=== PATIENT | male | born 1995 | race Caucasian/White ===

== ENCOUNTER 2017-01-03 17:02 | Inpatient (IN) | payer OTHER ==
--- NOTE | 2017-01-03 17:47 | ED ---
Psych HPI <Palomo Sauceda - Last Filed: 01/03/17 22:29> - General Source: patient, RN notes reviewed Mode of arrival: ambulatory <Eleanor Medrano - Last Filed: 01/03/17 22:39> - General Chief Complaint: Psychiatric Symptoms Stated Complaint: mental health Time Seen by Provider: 01/03/17 17:21 - History of Present Illness Initial Comments: 21 yo male presents to the ER with cc of suicidal ideation. Patient had a plan to drowned himself in the river. Not answering questions. He has been drinking. He did tell multiple family members by according to police report. Patient denies any complaints. (Eleanor Medrano) - Related Data Allergies Allergy/AdvReac Type Severity Reaction Status Date / Time No Known Allergies Allergy Verified 01/03/17 17:38 Review of Systems ROS Other: All systems not noted in ROS Statement are negative. <Palomo Sauceda - Last Filed: 01/03/17 22:29> ROS Other: All systems not noted in ROS Statement are negative. <Eleanor Medrano - Last Filed: 01/03/17 22:39> ROS Statement: Those systems with pertinent positive or pertinent negative responses have been documented in the HPI. General Exam Limitations: no limitations General appearance: alert, appears intoxicated, other (tearful) Head exam: Present: atraumatic, normocephalic, normal inspection Eye exam: Present: normal appearance, PERRL, EOMI. Absent: scleral icterus, conjunctival injection, periorbital swelling ENT exam: Present: normal exam, mucous membranes moist Neck exam: Present: normal inspection. Absent: tenderness, meningismus, lymphadenopathy Respiratory exam: Present: normal lung sounds bilaterally. Absent: respiratory distress, wheezes, rales, rhonchi, stridor Cardiovascular Exam: Present: regular rate, normal rhythm, normal heart sounds. Absent: systolic murmur, diastolic murmur, rubs, gallop, clicks Neurological exam: Present: alert Psychiatric exam: Present: depressed, suicidal ideation, other (tearful). Absent: homicidal ideation Skin exam: Present: warm, dry, normal color. Absent: intact (abrasions and scratches noted), rash <Eleanor Medrano - Last Filed: 01/03/17 22:39> Medical Decision Making <Palomo Sauceda - Last Filed: 01/03/17 22:29> <Eleanor Medrano - Last Filed: 01/03/17 22:39> - Medical Decision Making Patient reevaluated by myself, Dr. Sauceda. Patient will not speak at this time. Patient does have scratches to both sides of his abdomen and left arm which he admits he did do himself with his hands. Patient admits to being depressed and thoughts of harming himself. Petition with concerns for depression and patient admitting he wanted to jump into the river. Patient also had a recent suicide attempt a few weeks ago. She was seen by mental health services, who will admit. Positive clinical certificate completed. (Palomo Sauceda) 21-year-old male presents to emergency Department chief complaint of suicidal ideation. Patient refuses to tell me history. The patient patient does deny any health history. At this time condition was reviewed. This time patient is medically cleared any acute medical emergency to be evaluated by psychiatry at this time patient will be admitted to psychiatric care. (Eleanor Medrano) - Lab Data Lab Results 01/03/17 Range/Units 18:45 Urine Opiates Screen Not Detected (NotDetected) Ur Oxycodone Screen Not Detected (NotDetected) Urine Methadone Screen Not Detected (NotDetected) Ur Propoxyphene Screen Not Detected (NotDetected) Ur Barbiturates Screen Not Detected (NotDetected) U Tricyclic Antidepress Not Detected (NotDetected) Ur Phencyclidine Scrn Not Detected (NotDetected) Ur Amphetamines Screen Not Detected (NotDetected) U Methamphetamines Scrn Not Detected (NotDetected) U Benzodiazepines Scrn Not Detected (NotDetected) Urine Cocaine Screen Not Detected (NotDetected) U Marijuana (THC) Screen Not Detected (NotDetected) Disposition <Palomo Sauceda - Last Filed: 01/03/17 22:29> Time of Disposition: 22:39 <Eleanor Medrano - Last Filed: 01/03/17 22:39> Clinical Impression: Suicidal ideation, Depression Disposition: TRANSFER TO PSYCH HOSP/UNIT Referrals: None,Stated [Primary Care Provider] - 1-2 days
[2017-01-03] MEDS ORDERED: ZIPRASIDONE 20 MG VIAL IM STA (23:16)
[2017-01-03] MEDS ORDERED: LORazepam 2 MG/ML SYRINGE IM STA (23:16)
[2017-01-04] MEDS ORDERED: ZIPRASIDONE 20 MG VIAL IM PRN (00:18)
[2017-01-04] MEDS ORDERED: MAG HYDROX/AL HYDROX/SIMETH 30 ML CUP PO PRN (00:18)
[2017-01-04] MEDS ORDERED: MAGNESIUM HYDROXIDE 2,400 MG/10 ML CUP PO PRN (00:18)
[2017-01-04] MEDS ORDERED: ACETAMINOPHEN TAB 325 MG TAB PO PRN (00:18)
[2017-01-04] MEDS ORDERED: LORazepam 1 MG TAB PO PRN (00:29)
[2017-01-04] MEDS ORDERED: LORazepam 2 MG/ML SYRINGE IM PRN (00:30)
[2017-01-04 10:07] LABS: Basophils % (A) 1 %; CH 31.1; CHCM 34.5; Eosinophils % (A) 1 %; HCT 52.7 % (39.0-53.0); HDW 2.72; HGB 17.8 gm/dL (13.0-17.5); Luc # (Auto) 0.16; Luc % (Auto) 2; Lymphocytes # (A) 1.1 k/uL (1.0-4.8); Lymphocytes % (A) 12 %; MCH 30.6 pg (25.0-35.0); MCHC 33.8 g/dL (31.0-37.0); MCV 90.6 fL (80.0-100.0); Monocytes # (A) 0.4 k/uL (0-1.0); Monocytes % (A) 5 %; Neutrophils # (A) 7.4 k/uL (1.3-7.7); Neutrophils % (A) 80 %; RBC 5.81 m/uL (4.30-5.90); RDW 13.3 % (11.5-15.5); WBC 9.1 k/uL (3.8-10.6); WBC (Perox) 8.57
[2017-01-04 10:44] LABS: ALT 48 U/L (21-72); AST 43 U/L (17-59); Alkaline Phosphatase 103 U/L (38-126); Anion Gap 17 mmol/L; Blood Urea Nitrogen 20 mg/dL (9-20); Calcium 10.1 mg/dL (8.4-10.2); Carbon Dioxide 24 mmol/L (22-30); Chloride 105 mmol/L (98-107); Glucose 75 mg/dL (74-99); Non-African American GFR(MDRD) >60 (>60 ml/min/1.73 sqM); Potassium 4.6 mmol/L (3.5-5.1); Sodium 146 mmol/L (137-145); Total Bilirubin 1.7 mg/dL (0.2-1.3); Total Protein 8.2 g/dL (6.3-8.2)
--- NOTE | 2017-01-04 14:07 | P.CONS ---
History of Present Illness - Reason for Consult Consult date: 01/04/17 Medical management - History of Present Illness This is a 21-year-old male. He does not have a primary care physician. He does not have any significant past medical history. Patient states he has been depressed and suicidal. He has seen a counselor in the past. He states he has thought about running out into the highway to kill himself but denies doing anything at this time. Urine drug screen was negative. Patient has been admitted to the mental health unit. He denies any medical concerns at this time. Review of Systems All systems: negative Constitutional: Denies chills, Denies fever Eyes: denies blurred vision, denies pain Ears, nose, mouth and throat: Denies headache, Denies sore throat Cardiovascular: Denies chest pain, Denies shortness of breath Respiratory: Denies cough Gastrointestinal: Denies abdominal pain, Denies diarrhea, Denies nausea, Denies vomiting Musculoskeletal: Denies myalgias Integumentary: Denies pruritus, Denies rash Neurological: Denies numbness, Denies weakness Psychiatric: Reports depression, Reports hopelessness, Reports suicidal ideation , Denies anxiety Endocrine: Denies fatigue, Denies weight change Past Medical History Past Medical History: No Reported History Past Surgical History: No Surgical Hx Reported Smoking Status: Never smoker Additional Past Alcohol Use History / Comment(s): Patient denies any smoking history. He denies any medical marijuana, marijuana, street drug use. He states he drinks alcohol on the weekends. - Past Family History Father Additional Family Medical History / Comment(s): Father is alive at age 51 with no major medical problems. Mother Additional Family Medical History / Comment(s): Mother is alive at age 38 with no major medical problems. Sister(s) Additional Family Medical History / Comment(s): Patient has 1 sister with no major medical problems. Patient does not have any brothers. Patient does not have any children. Medications and Allergies Allergies Allergy/AdvReac Type Severity Reaction Status Date / Time No Known Allergies Allergy Verified 01/03/17 17:38 Physical Exam Vitals: Vital Signs Temp Pulse Pulse Resp BP BP Pulse Ox 01/04/17 00:06 97.2 F L 64 20 123/82 98 01/03/17 23:09 97.9 F 68 18 132/74 100 Gen: This is a 21-year-old male. He is cooperative. HEENT: Head is atraumatic, normocephalic. Pupils equal, round. Sclerae is anicteric. NECK: Supple. No JVD. No lymphadenopathy. No thyromegaly. LUNGS: Clear to auscultation. No wheezes or rhonchi. No intercostal retractions. HEART: Regular rate and rhythm. No murmur. ABDOMEN: Soft. Bowel sounds are present. No masses. No tenderness. EXTREMITIES: No pedal edema. No calf tenderness. NEUROLOGICAL: Patient is awake, alert and oriented x3. Cranial nerves 2 through 12 are grossly intact. Results CBC & Chem 7: 01/04/17 09:48 01/04/17 09:48 Labs: Abnormal Lab Results - Last 24 Hours (Table) 01/04/17 01/04/17 Range/Units 09:48 09:48 Hgb 17.8 H (13.0-17.5) gm/dL Sodium 146 H (137-145) mmol/L Total Bilirubin 1.7 H (0.2-1.3) mg/dL Assessment and Plan Plan: 1. Depression recurrent with suicidal ideation. Patient admitted to the mental health unit. Continue current plan of care. 2. No tobacco use. No need for nicotine patch. Impression and plan of care have been directed as dictated by the signing physician. Camila Rios nurse practitioner acting as scribe for signing physician. Time with Patient: Greater than 30
--- NOTE | 2017-01-04 18:44 | HP ---
DATE OF ADMISSION: 01/03/2017 IDENTIFYING DATA: Patient is 21-year-old single male who presented to the emergency with petition and clinical certificate for suicidal ideation. HISTORY OF PRESENT ILLNESS: Patient is a very poor historian, very evasive, guarded, answering most of the questions by one word. He stated that he has been feeling depressed for the last 4 or 5 weeks; however, he is not able to tell me what triggered this, but he describes that he has been struggling with panic attack and anxiety disorder since his early teens. He described increased anxiety characterized by restless feeling, racing thoughts, irritability, and feeling on edge. Patient reports that he has been having trouble falling asleep and staying asleep as his mind has been racing. He does feel that "I don't care about anything." But, he stated that he is not feeling hopeless or helpless, so when I did ask him what his goals are for the future he could not tell me anything. According to him there are recent stressors in his relationship with his girlfriend of 5 years and he stated that he has been drinking over the last 3 months more than usual as he said "I use to drink just beer, but for the past few months I have drinking three-quarters of a fifth of rum every other day." Patient was brought to the ER with the petition filled by 's department. According to the petition, patient did contact several family members to tell them goodbye and he was intoxicated, planning to drown himself in the river. When the family preservation officer asked him if he wanted to hurt himself, he told him "you already know, that is why you are here, to pick me up." The patient told the officer that he was going to jump into the river with intent to drown himself. When I read this petition to the patient he answered "I don't remember anything." The patient lives in [facility] with his father and stepmother. He stated that he has been depressed since the first week of November due to relationship problems with his girlfriend. He stated that he was intoxicated on and felt suicidal and was hospitalized in [place], but according to him it was not on the psych unit, it was on the medical floor to be detoxed, and he was seen by psychiatric who did recommend outpatient counseling. He had already 2 sessions with the psychologist in [place], but he is not taking any medications for any mental illness. PAST PSYCHIATRIC HISTORY: As I mentioned before, it seems that he was suicidal day on [facility] day and he spent 1 or [address] [facility]. He was planning to drown himself recently. It seems that his mother is very concerned that he is not safe to go home. Especially it seems in addition to contacting his family members on the phone, he left a suicidal note to family members. FAMILY PSYCHIATRIC HISTORY: Maternal grandfather had bipolar disorder. SUBSTANCE ABUSE HISTORY: He started drinking alcohol at age 14 and he was drinking between 5 to 6 beers 1 or 2 days of the week per week. Three months ago he started using hard liquor, between half to one-fifth of rum. He denied any DTs. He denied any withdrawal symptoms. He denied any drunk driving tickets. VITAL SIGNS: At the time of the admission, temperature 96.9, pulse 58, respirations 18, blood pressure 139/88. LABS: Within normal limits except sodium is slightly high at 146. Total bilirubin is 1.7. Urine drug screen is negative. SOCIAL HISTORY: Patient has one younger sister, he stated that his parents got when he was 14 years of age. He stayed with his mother until he finished high school. After high school he moved on his own to [place] for one year then he did travel to [place] for another year. He decided to return back to [place] 3 years ago. He is working in construction. He denied any legal problem. He never . He does not have children. He stated that he has been in relationship with Leticia for the last 5 years, but it has been off and on. Many times they broke up and then returned back to each other. He stated that since he moved back from [place] to [place] he has been staying with his father and his stepmother. According to him he has a good relationship with his parents and his stepmother. MENTAL STATUS EXAMINATION: Patient presented as a very young male, who is wearing hospital gown. Has facial acne. Guarded, evasive, irritable and very restless, avoiding eye contact. He appears to attend to the interview. He had distressed facial expression. He stated that he cannot trust anyone and he wanted to be discharged today. He was alert, oriented to person, place. He was very restless and fidgety throughout the interview. His speech is not spontaneous, just one-word answers. His affect was dysphoric with mixture of anger, anxiety, irritability and depression; however, he maintained control of his emotion. He denied any current suicidal ideation or ; however, when I did read the petition he was very defensive. He denied any homicidal ideation. He denied feeling hopeless, but he said, "I don't care." He did not express any idea of reference or delusion or hallucination; however, he seems very paranoid at the time. His thinking appeared concrete. Insight and judgment are impaired. INTELLECTUAL FUNCTION: Average. STRENGTHS: Supportive family and good physical health. WEAKNESSES: Alcohol use, limited insight to his need for mental health treatment. DISCHARGE DIAGNOSES: 1. Major depression, single episode, with psychotic feature. 2. Alcohol use disorder. 3. Rule out bipolar disorder. RECOMMENDATIONS: Continue inpatient psychiatric hospitalization for treatment of mood disorder. I will complete another certificate as the patient is not willing to sign himself in voluntarily. Suicidal precautions every 15 minutes. We will put him on [facility] protocol for detox., lianna Khan, until court hearing. beef cattle farm worker to contact his family for collateral information. Will request a routine medical consultation. Will monitor him for safety and encourage him to participate in milieu. CINDY
[2017-01-05] MEDS ORDERED: ARIPiprazole 5 MG TAB PO SCH (09:00)
--- NOTE | 2017-01-05 13:51 | P.PN ---
Progress Note - Text INTERVAL HISTORY: I saw patient and discussed his case in treatment team , He continues to be resistant to treatment ,guarded ,evasive ,has been staying in quiet room since his admission because "I do not want to see anyone",he stated that his mother came to visit yesterday but he refused to see her ,feeling helpless ,empty feeling ,does not feel that anyone caring about him ,"I do not see any positive thing in my future",he reports that he left "GOODBYE NOTES TO FAMILY MEMBERS",patient is minimizing his previous suicidal attempts ,according to patient mother ,patient had two previous attempts prior to recent one PER NURSING STAFF:patient took his oral Abilify but not participating in any group ,guarded and withdrawn ,no interaction with staff or peers MENTAL EXAM:: He presented as a disheveled caucassian male wearing hospital gown. . He is guarded ,evasive . He was alert and oriented to person, place and time. His speech was non spontaneous with decreased rate, rhythm and volume. His affect was depressed and not reactive. He describes feeling helpless but denies active suicidal ideation or wishes. He denied homicidal ideation. .He denies any delusion but seems paranoia and suspicious He denied hallucinations but did appear to be responding to internal stimuli. PLAN: Increase Abilify 10 mg QAM ,SW to contact his mother for collateral information ,patient does not have any insight tp his illness and need for treatment, encourage groups participation
[2017-01-06] MEDS: ARIPiprazole 10 MG TAB PO SCH (09:17)
--- NOTE | 2017-01-06 11:40 | P.PN ---
Progress Note - Text INTERVAL HISTORY: I saw patient and discussed his case in treatment team , He continues to be resistant to treatment but he was less guarded today ,he stated that he went to morning group but "I do feel ashamed of myself because I am here "does not believe that depression is medical illness as he said "IT IS WEAKNESS" ,reports self dislike ,pessimism ,loss of interest ,indecisiveness , tiredness and fatigue.He is still paranoia and having difficulty "TRUSTING PEOPLE" Patient complaining of side-effect from Abilify:unsteady gait and dizzy at times PER NURSING STAFF:patient took his oral Abilify ,able to sleep in his room instead of quiet room still isolating himself and withdrawn ,no interaction with leonie MENTAL EXAM:: He presented as a caucassian male wearing hospital gown. . He is less guarded but still very reserved . He was alert and oriented to person, place and time. His speech was non spontaneous with decreased rate, rhythm and volume. His affect was depressed and not reactive. He describes feeling helpless but denies active suicidal ideation or wishes. He denied homicidal ideation. .He denies any delusion but seems paranoia and suspicious He denied hallucinations but did appear to be responding to internal stimuli. PLAN: Patient mother filled petition yesterday ,I filled first certificate , will continue Abilify 10 mg ,encourage participation in milieu
[2017-01-07] MEDS: ARIPiprazole 10 MG TAB PO SCH (09:16)
--- NOTE | 2017-01-07 17:43 | P.PN ---
Progress Note - Text Date of service: 01/07/2017 Chief complaint:" I want to go home" Subjective: The patient has been seeing today as follow-up, chart reviewed, case discussed with the treatment team. The patient reported he continued to feel depressed and intermittently suicidal and he states his suicidal thoughts is less severe. The patient was fixated on discharge, but he couldn't address any coping skills with his depression and suicidal thoughts and he couldn't commit for any aftercare plan. Patient reported has better sleep last night about 6 hours. He reports fair appetite and concentration. Generally the patient was very guarded, evasive in answering questions and doesn't talk about his emotions or feelings. The patient denies any manic symptoms including sustained period of time with elevated or irritable mood, impulsive or irrational behavior, inflated self- esteem, or absence need to sleep due to increases goal-directed activities. The patient denies any auditory or visual hallucinations. Also the patient denies any paranoid ideation. Functional level at the unit: As per nursing report, the patient has not been actively participate in groups and other activities. Review of other systems: Patient denies any physical symptoms besides what has been mentioned above. No problems was presenting no chest pain reported today. Objective: Vitals has been reviewed. Mental status examination; Appearance: The patient appears stated age, average weight, partially disheveled , was no specific features. Gait/posture: Normal gait and posture, Normal arm was swinging: No abnormal movements. Attitude and behavior: Guarded, mild engaged, poor eye contact. Motor activity: Psychomotor retardation Speech: Slow and soft, not pressured Mood: Depressed Affect: Restricted Thought form: Fixated on discharge but Goal-directed, linear, and coherent. Thought content: Non delusional, reports suicidal thoughts, denies homicidal thoughts, denies intentions or plans. Perception: Denies any auditory or visual hallucinations Attention: No impairment. Patient was able to repeat serial 7. Orientation: Patient patient was fully oriented to time place person and situation. Insight: Patient has limited insight about his psychiatric disorder. Judgment: Patient has limited judgment about his psychiatric treatment. Assessment: Major depressive disorder recurrent with psychotic features Plan: Continue current management management Continue Abilify 10 mg daily for psychotic symptoms. Start Effexor 37.5 mg by mouth daily for depressive symptoms. Continue inpatient level of care for further monitoring and assessment of psychiatric symptoms.
[2017-01-08] MEDS ORDERED: VENLAFAXINE HCL 37.5 MG TAB PO SCH (09:00)
[2017-01-08] MEDS: ARIPiprazole 10 MG TAB PO SCH (09:19)
--- NOTE | 2017-01-08 15:38 | P.PN ---
Progress Note - Text Date of service: 01/08/2017 Chief complaint:" I am okay" Subjective: The patient has been seen today as follow-up, chart reviewed, case discussed with the treatment team. The patient was less fixated on discharge today. He reports is still feeling depressed with intermittent suicidal ideation. The patient stated has fair to sleep last night for about 6 hours and denies any concentration or appetite problems. Patient continued to be guarded, evasive in answering questions with only giving 1 word answer. The patient denies any manic symptoms including sustained period of time with elevated or irritable mood, impulsive or irrational behavior, inflated self-esteem, or absence need to sleep due to increases goal-directed activities. The patient denies any auditory or visual hallucinations. Also the patient denies any paranoid ideation. Review of other systems: Patient denies any physical symptoms besides what has been mentioned above. No problems was breathing, no chest pain reported today. Objective: Vitals has been reviewed. Mental status examination; Appearance: The patient appears stated age, average weight, partially disheveled , was no specific features. Gait/posture: Normal gait and posture, Normal arm was swinging: No abnormal movements. Attitude and behavior: Guarded, mild engaged, poor eye contact. Motor activity: Psychomotor retardation Speech: Slow and soft, not pressured Mood: Depressed Affect: Restricted Thought form: Fixated on discharge but Goal-directed, linear, and coherent. Thought content: Non delusional, reports suicidal thoughts, denies homicidal thoughts, denies intentions or plans. Perception: Denies any auditory or visual hallucinations Attention: No impairment. Patient was able to repeat serial 7. Orientation: Patient patient was fully oriented to time place person and situation. Insight: Patient has limited insight about his psychiatric disorder. Judgment: Patient has limited judgment about his psychiatric treatment. Assessment: Major depressive disorder recurrent with psychotic features Plan: Continue current management management Continue Abilify 10 mg daily for psychotic symptoms. Reason Effexor to 75 mg by mouth daily for depressive symptoms. Continue inpatient level of care for further monitoring and assessment of psychiatric symptoms.
[2017-01-09] MEDS: VENLAFAXINE HCL 75 MG TAB PO SCH (09:14)
[2017-01-09] MEDS: ARIPiprazole 10 MG TAB PO SCH (09:14)
--- NOTE | 2017-01-09 13:25 | P.PN ---
Progress Note - Text SUBJECTIVE: I reviewed the medical record, interviewed Mr. Webb and discuss his treatment and treatment plan during team meeting. He presented to the unit on 01/03/2017 involuntarily with suicidal ideation and plan to drown himself. He was minimally cooperative on [facility]. He complained of increased anxiety and increased use of alcohol. He was drinking, over the last 3 months, 1/5 of rum every other day. He was minimally cooperative during our interview. He denied current thoughts of or suicide. He talked about the "stress" that he placed his girlfriend and his family through. He was either unwilling or unable to talk concerns that may have contributed to his suicidal ideation and plan. He avoided answering questions about feelings of hopelessness or helplessness. He tended to give single word answers to questions. In response to questions about depression he replied "a bit". He denied side effects to his current medications. He denied alcohol withdrawal symptoms. OBJECTIVE: He presented as a tall thin casually groomed 21-year-old male who was pleasant on approach. He maintained eye contact and appeared to attend to interview. He had no distinguishing features or prominent physical abnormalities. He had a blunted facial expression. He is alert and oriented to person, place and time. He showed psychomotor retardation but no abnormal involuntary movement movements. His speech was not spontaneous and had decreased rate, rhythm and volume. He had no articulation difficulties. His affect was blunted and depressed. He denied current suicidal ideation or wishes. He changes topic when I inquired about feelings of hopelessness, helplessness or worthlessness. He ruminated on the "stress" that he is placed on his girlfriend and family. He did not express phobias, ideas reference or paranoid ideation. His thinking was concrete but his associations were coherent and logical. He denied hallucinations and did not appear to be responding to internal stimuli. During treatment team [employer] school social worker reported on a conversation she had with his mother. His mother retrieved his truck from police impound and found a box of bullets and a $1500 zamora withdrawal from his bank,. She expressed concern that he may have purchased a gun. ASSESSMENT: Overall he appears moderately to severely mentally ill and minimally to moderately improve from admission. He appears severely depressed and is denying current suicidal ideation, intent or plan. The Petition and supporting documents have been submitted to probate court for involuntary hospitalization. PLAN: Continue with inpatient hospitalization due to the severity of depression and the risk for suicide. Continue suicide precautions with 15 minute checks. Continue Abilify 10 mg and Effexor 75 mg daily; titrate the Effexor as tolerated. Continue the Ativan 1 mg by mouth/IM every 8 hours when necessary for agitation or acute psychosis. Encourage participation in therapeutic groups and activities. Evaluate clinical status response to treatment on a daily basis.
[2017-01-10] MEDS: VENLAFAXINE HCL 75 MG TAB PO SCH (09:09)
[2017-01-10] MEDS: ARIPiprazole 10 MG TAB PO SCH (09:09)
--- NOTE | 2017-01-10 15:04 | P.PN ---
Progress Note - Text SUBJECTIVE: I reviewed the medical record, interviewed Mr. Webb and discussed his treatment and treatment plan during team meeting. We talked about his depression, alcohol use and suicidal thoughts and gestures. He is not psychologically minded. He attributed the depression and suicidal thoughts to to lack of activity. He was off work for one month earlier this year and during that time felt "useless". 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 He is unable to identify psychological issues contributing to the suicidal thoughts. He agreed that his suicidal thoughts definitely worsen when he uses alcohol. A protective factor against another suicide attempt is the distressed he caused his family particularly his sister. We talked about the report of a box of bullets in his truck and $1500 withdrawn from his savings. He stated that the box of bullets were in his truck "for a while" and he gave the $1500 to his girlfriend. He stated that he talked to his mom and explained the same. He denied that he had purchased a gun. He denied side effects to his current medications. OBJECTIVE: He presented as a tall thin casually groomed 21-year-old male who was pleasant on approach. He maintained eye contact and appeared to attend to interview. He had no distinguishing features or prominent physical abnormalities. He had a blunted facial expression. He is alert and oriented to person, place and time. He psychomotor retardation but no abnormal involuntary movement movements. His speech was spontaneous and had decreased rate, rhythm and volume. He had no articulation difficulties. His affect was depressed. He admitted to "occasional" suicidal ideation but denied intent or plan. He feels more hopeful that he denied admission. He ruminated on the "stress" that he is placed on his girlfriend and family. He did not express phobias, ideas reference or paranoid ideation. His thinking was concrete but his associations were coherent and logical. He denied hallucinations and did not appear to be responding to internal stimuli. He told the social security assessor that he would to the $1500 to get his girlfriend because he did not expect to live. ASSESSMENT: Overall he appears moderately to severely mentally ill and minimally to moderately improve from admission. He appears severely depressed and is denying current suicidal ideation, intent or plan. The Petition and supporting documents have been submitted to probate court for involuntary hospitalization. PLAN: Continue with inpatient hospitalization due to the severity of depression and the risk for suicide. Continue suicide precautions with 15 minute checks. Continue Abilify 10 mg. Change venlafaxine to Effexor XR and increase the dose to 150 mg daily. Continue the Ativan 1 mg by mouth/IM every 8 hours when necessary for agitation or acute psychosis. Encourage participation in therapeutic groups and activities. Evaluate clinical status response to treatment on a daily basis.
[2017-01-11] MEDS: VENLAFAXINE HCL ER 150 MG CAP PO SCH (09:37)
[2017-01-11] MEDS: ARIPiprazole 10 MG TAB PO SCH (09:37)
--- NOTE | 2017-01-11 13:34 | P.PN ---
Progress Note - Text SUBJECTIVE: I reviewed the medical record, interviewed Mr. Webb and discussed his treatment and treatment plan during team meeting. He stated he is feeling better. He denied feeling depressed, sad or blue much of the time. He denied feeling hopeless about the future. He is able to enjoy himself and finds the therapeutic groups beneficial. He denied problems with sleep. We talked about the circumstances that led to her hospitalization. He had planned to suicide to the extent of giving away possessions. He developed ambivalence about his action when he called his mom on a daily admission. When he told her "goodbye" he stated she started crying and pleaded with him. He was unable to described his thoughts leading up to the suicide plan. He talked about having too much free time and feeling useless because he was not working. OBJECTIVE: He presented as a tall thin casually groomed 21-year-old male who was pleasant on approach. He maintained eye contact and appeared to attend to interview. He had no distinguishing features or prominent physical abnormalities. He had a blunted facial expression. He is alert and oriented to person, place and time. He psychomotor retardation but no abnormal involuntary movement movements. His speech was spontaneous and had decreased rate, rhythm and volume. He had no articulation difficulties. His affect was depressed. He denied current suicidal thoughts or wishes. He feels more hopeful that on admission. He did not express phobias, ideas reference or paranoid ideation. His thinking was concrete but his associations were coherent and logical. He denied hallucinations and did not appear to be responding to internal stimuli. We have not received notification from local [facility] probate Court regarding his involuntary treatment application. ASSESSMENT: Overall he appears moderately mentally ill and minimally to moderately improve from admission. He appears moderately depressed depressed and is denying current suicidal ideation, intent or plan. The Petition and supporting documents have been submitted to probate court for involuntary hospitalization. PLAN: Continue with inpatient hospitalization due to the severity of depression and the risk for suicide. Continue suicide precautions with 15 minute checks. Continue Abilify 10 mg. Continue Effexor XR 150 mg daily and titrated according to clinical response and tolerance. Continue the Ativan 1 mg by mouth/IM every 8 hours when necessary for agitation or acute psychosis. Encourage participation in therapeutic groups and activities. Evaluate clinical status response to treatment on a daily basis.
[2017-01-12] MEDS: VENLAFAXINE HCL ER 150 MG CAP PO SCH (08:57)
[2017-01-12] MEDS: ARIPiprazole 10 MG TAB PO SCH (08:57)
[2017-01-12 11:18] VITALS: BMI 21.3
--- NOTE | 2017-01-12 12:12 | P.PN ---
Progress Note - Text SUBJECTIVE: I reviewed the medical record, interviewed Mr. Webb and discussed his treatment and treatment plan during team meeting. Similar to yesterday he stated that he is feeling much better. He denied feeling depressed or having thoughts of suicide. We again talked about his suicide attempts beginning with the one on . The first 2 were impulsive but potentially lethal. On , he was at a bar with his girlfriend and family. He stated that he was having an enjoyable time when he suddenly became angry and left the bar. He planned on walking home (he admits that didn't make much since since home was 15 [place]20 miles [place] He had a "panic attack" and walked into traffic. On the second suicide attempt he was again with his family at a bar. He came angry and distressed on the way home. He rushed into house and grabbed his shotgun. His family heard him and took away the shotgun. He alleged that he was going to take the shotgun outside "to think". The third attempt led to this admission and was less impulsive. He had thought about suicide and had made plans. He aborted his plan because he spoke with his mother and telephone to wish her goodbye and she pleaded with him to seek treatment. He is unable to identify a reason for the sudden feelings of self-harm. Discussion drifted towards his relationship with his girlfriend but when I asked him directly he denied that he has concerns about her relationship. He did not mention that he spoke with his girlfriend yesterday and she asked for a temporary separation. OBJECTIVE: He presented as a tall thin casually groomed 21-year-old male who was pleasant on approach. He maintained eye contact and appeared to attend to interview. He had no distinguishing features or prominent physical abnormalities. He had a blunted facial expression. He is alert and oriented to person, place and time. He psychomotor retardation but no abnormal involuntary movement movements. His speech was spontaneous and had decreased rate, rhythm and volume. He had no articulation difficulties. His affect was depressed. He denied current suicidal thoughts or wishes. He feels more hopeful that on admission. He did not express phobias, ideas reference or paranoid ideation. His thinking was concrete but his associations were coherent and logical. He denied hallucinations and did not appear to be responding to internal stimuli. We have not received notification from local [facility] probate Court regarding his involuntary treatment application. ASSESSMENT: Overall he appears moderately mentally ill and minimally to moderately improve from admission. He appears moderately depressed depressed and is denying current suicidal ideation, intent or plan. The Petition and supporting documents have been submitted to probate court for involuntary hospitalization. PLAN: Continue with inpatient hospitalization due to the severity of depression and the risk for suicide. Continue suicide precautions with 15 minute checks. Continue Abilify 10 mg. Continue Effexor XR 150 mg daily and titrated according to clinical response and tolerance. Continue the Ativan 1 mg by mouth/IM every 8 hours when necessary for agitation or acute psychosis. Referred to a partial hospital program after discharge. Encourage participation in therapeutic groups and activities. Evaluate clinical status response to treatment on a daily basis
[2017-01-13] MEDS: VENLAFAXINE HCL ER 150 MG CAP PO SCH (08:30)
[2017-01-13] MEDS: ARIPiprazole 10 MG TAB PO SCH (08:30)
--- NOTE | 2017-01-13 12:11 | P.PN ---
Progress Note - Text SUBJECTIVE: I reviewed the medical record, interviewed Mr. Webb and discussed his treatment and treatment plan during team meeting. Similar to yesterday he stated that he is feeling much better. He denied feeling depressed or having thoughts of suicide. His mother provided a written outline of his behavior and her concerns since 08/2017. The theme throughout the summary was his excessive drinking and changes in mood and behavior when he was drinking. On the day of admission, the [place] police found him "passed out with a fifth of rum/whiskey next to him on the [address] [place] [place]. I shared the information his mother provided us. He denied that he had an alcohol use problem and stated that he can control his alcohol use since he was able to stop smoking on his own. He rejected my recommendation for residential substance abuse treatment. OBJECTIVE: He presented as a tall thin casually groomed 21-year-old male who was pleasant on approach. He maintained eye contact and appeared to attend to interview. He had no distinguishing features or prominent physical abnormalities. He had a blunted facial expression. He is alert and oriented to person, place and time. He psychomotor retardation but no abnormal involuntary movement movements. His speech was spontaneous and had decreased rate, rhythm and volume. He had no articulation difficulties. His affect was depressed. He denied current suicidal thoughts or wishes. He feels more hopeful that on admission. He did not express phobias, ideas reference or paranoid ideation. His thinking was concrete but his associations were coherent and logical. He denied hallucinations and did not appear to be responding to internal stimuli. We have not received notification from local [facility] probate Court regarding his involuntary treatment application. ASSESSMENT: The changes in mood, suicidal ideation and gestures all to appear to have developed when he was intoxicated. Overall he appears moderately mentally ill and minimally to moderately improve from admission. He appears moderately depressed depressed and is denying current suicidal ideation, intent or plan. The Petition and supporting documents have been submitted to probate court for involuntary hospitalization. PLAN: Continue with inpatient hospitalization due to the severity of depression and the risk for suicide. Continue suicide precautions with 15 minute checks. Continue Abilify 10 mg. Continue Effexor XR 150 mg daily and titrated according to clinical response and tolerance. Continue the Ativan 1 mg by mouth/IM every 8 hours when necessary for agitation or acute psychosis. Referred to a partial hospital program after discharge. Encourage participation in therapeutic groups and activities. Evaluate clinical status response to treatment on a daily basis
[2017-01-14] MEDS: ARIPiprazole 10 MG TAB PO SCH (09:08)
[2017-01-14] MEDS: VENLAFAXINE HCL ER 150 MG CAP PO SCH (09:08)
--- NOTE | 2017-01-14 21:09 | P.PN ---
Progress Note - Text Interval history: Patient is seen in cross coverage today for Dr. Glover. He reports that he feeling much better. He does describe some difficulty with urination and some anxiety related to medication side effects but the benefits far outweigh the side effects. He says he deals with anxiety by walking or reading. He had a good visit with his family. He does talk about feeling ready for discharge on Monday. He does make reference to the discussion of inpatient rehab, relays that he would like to work an outpatient program with AA , he will discuss this further with his attending psychiatrist. Mental status exam: He is alert and cooperative. His speech is fluent, not rapid or pressured. Thought processes are organized. His mood is improved. He has not verbalize any thoughts of harm to self or others. No evidence of psychosis or agitation. His affect does show range. There is no agitation. Plan: Patient will be maintained on current psychotropic medication regimen. We 'll continue to cover this patient for Dr. Glover through the weekend.
[2017-01-15] MEDS: VENLAFAXINE HCL ER 150 MG CAP PO SCH (09:14)
[2017-01-15] MEDS: ARIPiprazole 10 MG TAB PO SCH (09:14)
--- NOTE | 2017-01-15 16:26 | P.PN ---
Progress Note - Text Interval history: Patient seen in cross coverage today for Dr. Glover. He reports that he continues to feel better mood mercado. He is tolerating his psychotropic medications fine. Says sleep is decent, could be better. His appetite is been fine. He seemed to do well with a family visit last night. Mental status exam: He is alert and cooperative with the interview. Speech is fluent, not rapid or pressured. Thought processes are organized. His mood overall is improved. He denies any thoughts of harm to self or others. There is no evidence of psychosis or agitation. Plan: We'll maintain current psychotropic medication regimen. Look for discharge planning as early as tomorrow. Dr. Glover to resume care this patient starting tomorrow.
[2017-01-16] MEDS: VENLAFAXINE HCL ER 150 MG CAP PO SCH (08:50)
[2017-01-16] MEDS: ARIPiprazole 10 MG TAB PO SCH (08:50)
--- NOTE | 2017-01-16 15:19 | P.PN ---
Progress Note - Text SUBJECTIVE: I reviewed the medical record, interviewed Mr. Webb and discussed his treatment and treatment plan during team meeting. He stated he is feeling well. He denied feeling depressed or having thoughts of or suicide. He feels hopeful about the future. He is able to enjoy himself and has no difficulty sleeping at night. The high school social studies teacher met with his family last Monday. His parents were not supportive or our recommendation for residential substance abuse treatment. The parents told the high school social studies teacher they're willing to drive to appointments, increased their supervision and monitor his medications. He stated that he does not believe he needs to be in a substance abuse treatment program but would defer to our guidance. I again highlighted the report from his mother where alcohol and alcohol intoxication was involved in his suicide attempts or gestures. OBJECTIVE: He presented as a tall thin casually groomed 21-year-old male who was pleasant on approach. He maintained eye contact and appeared to attend to interview. He had no distinguishing features or prominent physical abnormalities. He had a blunted but bright facial expression. He is alert and oriented to person, place and time. He had normal psychomotor activity and no abnormal involuntary movement movements. His speech was spontaneous with normal rate, rhythm and volume. He had no articulation difficulties. His affect was depressed. He denied current suicidal thoughts or wishes. He feels hopeful about the future. He did not express phobias, ideas reference or paranoid ideation. His thinking was concrete but his associations were coherent and logical. He denied hallucinations and did not appear to be responding to internal stimuli. He is to have a deferral hearing at 11 AM today ASSESSMENT: The changes in mood, suicidal ideation and gestures all to appear to have developed when he was intoxicated. Overall he appears minimally mentally ill and much improve from admission. He appears minimally depressed depressed and is denying current suicidal ideation, intent or plan. PLAN: Continue with inpatient hospitalization pending deferral. Continue suicide precautions with 15 minute checks. Continue Abilify 10 mg. Continue Effexor XR 150 mg daily. Continue the Ativan 1 mg by mouth/IM every 8 hours when necessary for agitation or acute psychosis. Referred to a partial hospital program after discharge. Encourage participation in therapeutic groups and activities. Evaluate clinical status response to treatment on a daily basis
[2017-01-17 06:21] VITALS: BP 141/78; PULSE 75; RESP 16; TEMP 98
[2017-01-17] MEDS: ARIPiprazole 10 MG TAB PO SCH (08:41)
[2017-01-17] MEDS: VENLAFAXINE HCL ER 150 MG CAP PO SCH (08:41)
--- NOTE | 2017-01-17 09:14 | P.DS ---
Providers Date of admission: 01/03/17 22:53 Attending physician: Antwon Glover MD Consults: 01/04/17 00:18 Consult Physician Routine Consulting Provider: Juan Jose Calero Consult Reason/Comments: H & P and medical follow up Do you want consulting provider notified?: Yes, Notify in am Primary care physician: Stated None - Discharge Diagnosis(es) (1) Alcohol use disorder Current Visit: Yes Status: Chronic Priority: High (2) Depression Current Visit: Yes Status: Chronic Priority: High (3) Suicidal ideation Current Visit: Yes Status: Acute Priority: Medium Hospital Course: Mr. Webb is a 21-year-old single male who presented to the unit involuntarily with a history of suicidal ideation. The police brought him to the emergency room. On the Monday prior to admission he withdrew $1500 from his savings account and gave it to his girlfriend and perhaps preparation for his . On the day of admission he went to the [facility] in [facility] after work. He told his mother that he was not going to his psychologist's appointment today. He sent his girlfriend a text message and called the sister bidding her goodbye. His mother called the local police and they found him "passed out" with her fists fifth of rum[place]whiskey [place] a [place] in [facility]. He was a taciturn historian and provided little information. He alleged she had been the depressed for the last 4-5 weeks and they have been "struggling" with depression and anxiety since his early teens. Please see admission history dated 01/03/2017. During the hospitalization his mother provided a summary of her observations of Dale's behavior since November 2016. One theme throughout the summary was Dale 's excessive drinking. For example during a cruise in November 2016 she noted that he was drinking excessively to the extent of vomiting. He developed mood swings and became angry and belligerent. On 's Day weekend he was again drinking and develop mood swings and suicidal ideation. His mother noted that on Monday he was "drinking all day" and on Monday was "drinking excessively from 3 PM to midnight." Beginning on December 31 he was drinking "double rum and Cokes" and his mood abruptly changed and he text his girlfriend a suicide note. The following day he withdrew $1500 from his account. Later that day the mother called the police concerned about his behavior. The police found him intoxicated. We admitted him to the psychiatric unit initially under the care of Dr. Marie. We provided a biopsychosocial assessment. The mgmt consultant auto top mechanic completed the initial physical exam and medical history. The mgmt consultant diagnosed depression and tobacco use disorder. We placed him on suicide precautions with 15 minute checks and managed his alcohol withdrawal using the CIWA and lorazepam 1 mg when necessary. He had mild alcohol withdrawal symptoms. We treated the depressive symptoms with Effexor XR titrating the dose to 150 mg per day and augmenting the antidepressant with Abilify 10 mg at bedtime. We talked about the relationship between his alcohol use, his mood fluctuations and his suicidal ideation. He does not believe he has an alcohol use problem. His family was opposed to a recommendation for residential substance abuse treatment. He participated in therapeutic groups and activities. He was not psychologically minded and did not appear to recognize the relationship between his mood and the difficulties he is experiencing in the relationship with his girlfriend. At the time of discharge she denied feeling depressed or having thoughts of or suicide. He agreed to follow-up with individual therapy and psychiatric treatment. The oncology social worker arrange for her appointment with his psychologist and psychiatrist in [facility]. Plan - Discharge Summary New Discharge Prescriptions: ARIPiprazole [Abilify] 10 mg PO DAILY 30 Days Venlafaxine HCl ER [Effexor XR] 150 mg PO DAILY 30 Days Discharge Medication List ARIPiprazole [Abilify] 10 mg PO DAILY 30 Days 01/17/17 [Rx] Venlafaxine HCl ER [Effexor XR] 150 mg PO DAILY 30 Days 01/17/17 [Rx] Follow up Appointment(s)/Referral(s): Dr Joey [Other] - 01/18/17 9:00 am (Dr Palomo Cook) None,Stated [Primary Care Provider] - 1-2 days Patient Instructions/Handouts: Depression (DC), Suicide Prevention for Adults ( DC) Activity/Diet/Wound Care/Special Instructions: Activity and diet as tolerated. Avoid the use of street drugs and alcohol. Take all medications as prescribed. When you are in need of refills please contact your medical provider and/or outpatient psychiatrist to have this done. Please go to scheduled outpatient appointment for aftercare. If symptoms return or become worse contact the crisis line at and/or go to the nearest emergency room for an evaluation. Discharge Disposition: HOME SELF-CARE
== END 2017-01-17 11:11 | disposition home or self-care (01) | DRG 885 ==
LOC: EC 17:02 → 3MHU 22:53
PROVIDERS: ADMIT Psychiatry & Neurology Psychiatry; ATTEND Psychiatry & Neurology Psychiatry
DX: F33.3 Major depressive disorder, recurrent, severe with psychotic symptoms (principal); R45.851 Suicidal ideations; F10.239 Alcohol dependence with withdrawal, unspecified; Z81.8 Family history of other mental and behavioral disorders; F41.0 Panic disorder [episodic paroxysmal anxiety]; Z91.5 Personal history of self-harm
CPT/HCPCS: 80053; 80306; 82075; 84443; 85025; 96372; 99285